=== PATIENT | male | born 2000 | race Caucasian/White ===

== ENCOUNTER 2023-04-12 19:54 | Emergency (ER) | payer OTHER, SELFPAY ==
[2023-04-12 20:04] VITALS: BP 124/85; PULSE 69; RESP 18; TEMP 36.8; O2SAT 98
--- NOTE | 2023-04-12 21:05 | ED.EXTPRO ---
HPI - Extremity Problem General Chief complaint: Extremity Injury, Upper Stated complaint: finger laceration Time Seen by Provider: 04/12/23 20:42 History of Present Illness HPI Narrative: Patient complains of abrasion to left thumb and index finger and finger tip avulsion to left ring finger, this was done on a slicing machine on the job at work at [employer] He denies any other injury, does not recall his last tetanus shot Related Data Previous Rx's Medication Instructions Recorded acetaminophen 500 mg tablet 1,000 mg (2 x 500 mg) PO QID PRN 04/12/23 pain #30 tabs cephalexin 500 mg tablet 500 mg PO QID 5 days #20 tabs 04/12/23 ibuprofen 600 mg tablet 600 mg PO Q6H PRN pain #20 tabs 04/12/23 Allergies Allergy/AdvReac Type Severity Reaction Status Date / Time No Known Allergies Allergy Verified 04/12/23 20:08 [facility] Past Medical History Source: nursing notes reviewed Social History Social History Advance Directives: No Advance Directives Information Provided: No Physical Exam Vital Signs: Vital Signs: Last Vital Signs Temp 98.3 F 04/12/23 20:04 Pulse 69 04/12/23 20:04 Resp 18 04/12/23 20:04 BP 124/85 04/12/23 20:04 Pulse Ox 98 04/12/23 20:04 O2 Del Method Room Air 04/12/23 20:04 BMI result Body Mass Index 30.0 General appearance uncomfortable but no acute distress Head normocephalic atraumatic Neck is supple Respiratory no distress Extremities full range motion x4 Left thumb as a very superficial small abrasion, no skin avulsion to the finger tip Left index finger has a very small abrasion to the fingertip Left ring finger has a dime-sized skin avulsion to the fingertip, there is full range of motion in the finger there is normal sensation distal, it is oozing blood All extremities in the left hand and wrist have full range of motion, no evidence of tendon deficit normal flexion and extension Course Course Course Narrative: Small abrasions on thumb and index finger were cleansed and put a Band-Aid Skin avulsion finger tip left 4th finger is cleansed with saline, skin is allowed to dry, it was continuing to ooze blood so a tourniquet was applied to the middle phalanx and bleeding stopped and Dermabond was applied with good bleeding control, and a Xeroform dressing was applied Patient will follow the for this work-related injury with [facility] and hand doctor as avulsion was dime-sized and he will be evaluated by specialist to see if he needs any grafting or other treatment Discharge Plan Discharge Clinical Impression: Avulsion of skin Patient Disposition: Home, Self-Care Additional Instructions: You had a dime-sized avulsion of skin on left ring finger fingertip I put some skin glue to stop bleeding and a dressing was applied You got a tetanus shot and we are doing 4 days of Keflex to hopefully prevent any infection Follow with [facility] or whatever [facility] doctor your company requires for work related injury This should be seen by a hand specialist to evaluate if you need any skin grafting or other specialist treatment for the open wound Return any time for redness swelling increased pain fever discharge from wound any sign of infection Prescriptions: New cephalexin 500 mg tablet 500 mg PO QID 5 Days Qty: 20 0RF ibuprofen 600 mg tablet 600 mg PO Q6H PRN (Reason: pain) Qty: 20 0RF acetaminophen 500 mg tablet 1,000 mg PO QID PRN (Reason: pain) Qty: 30 0RF Referrals: [facility] [Provider Group] (Work-related left 4th finger skin avulsion from slicer) Jackie Chavez MD [Physician] - (Left 4th fingertip skin avulsion at work from slicer) Stand Alone Forms: Work/School Release Interventions: ED Discharge Assessment Last Done: 04/12/23 20:37
[2023-04-12] MEDS: Diphth,Pertus(ACell),Tet Adult 0.5 ML SYRINGE IM (21:08)
[2023-04-12] MEDS: Lidocaine HCl 1 % MPF 5 ML VIAL SUBCUT ×2 (21:10)
[2023-04-12] MEDS: cephALEXin 500 MG CAPSULE PO (21:10)
[2023-04-12] MEDS: Ibuprofen 600 MG TABLET PO (21:20)
== END 2023-04-12 21:26 | disposition home or self-care (01) ==
PROVIDERS: Emergency Provider Student in an Organized Health Care Education/Training Program
DX: S61.012A Laceration without foreign body of left thumb without damage to nail, initial encounter (principal); S61.211A Laceration without foreign body of left index finger without damage to nail, initial encounter; S60.512A Abrasion of left hand, initial encounter; W26.9XXA Contact with unspecified sharp object(s), initial encounter; Y93.9 Activity, unspecified; Y92.9 Unspecified place or not applicable; Y99.0 Civilian activity done for income or pay; Z23 Encounter for immunization
CPT/HCPCS: 90471; 90715; 99283; 99284

== ENCOUNTER 2023-04-15 07:50 | Outpatient (REF) | payer OTHER, SELFPAY ==
--- NOTE | ~2023-04-15 | XR_ITS ---
EXAMINATION: XR HAND, LEFT CLINICAL INFORMATION: Pain in unspecified hand, 4th digit tip. COMPARISON: None available. TECHNIQUE: PA, lateral, and oblique views of the left hand. FINDINGS: Mild degenerative changes in the 1st carpometacarpal joint with joint space narrowing and hypertrophic change. Soft tissue swelling at the distal tuft of the 4th digit. No displaced fracture of the 4th digit identified. XR/XR hand LT min 3V IMPRESSION: Soft tissue swelling at the distal tuft of the 4th digit. No displaced fracture of the 4th digit identified. Recommend follow-up imaging in 10-14 days if fracture is suspected. Mild degenerative changes 1st carpometacarpal joint.
== END 2023-04-15 07:51 | disposition home or self-care (01) ==
LOC: HO.HOSX 07:50
PROVIDERS: Visit Provider Physician Assistant
DX: S61.205A Unspecified open wound of left ring finger without damage to nail, initial encounter (principal)
CPT/HCPCS: 73130; 99202

== ENCOUNTER 2023-04-15 08:27 | Outpatient (AMB) | payer OTHER, SELFPAY ==
--- NOTE | 2023-04-15 08:29 | A.OFFVIS_ITS ---
Intake Vital Signs 04/15/23 08:29 Height 6 ft 3 in Weight 240 lb BMI 30.0 Handedness Right Intake Visit Reasons: New Pt - LT Ring Finger avulsion, DOI 04/12/23 Intake Note: Jose Raul is a 23 year old right hand dominant who presents today for a evaluation of his left thumb, index finger and RF avulsion, DOI 04/12/23. Patient reports that this was done on a deli slicing machine on the job at work at [employer]. He states that he is having throbbing pain in all his three fingers. When he bangs his fingers on something he tends to get a sharp pain. Allergies No Known Allergies Allergy (Verified 04/15/23 08:42) HPI New Pt - LT Ring Finger avulsion, DOI 04/12/23 HPI Details 23-year-old right hand dominant male who presents in the office today, as a new patient, for an evaluation of a left hand pain. The patient presented to the ED on 04/12/2023 with a complaint of an abrasion to the left thumb and index finger and a finger tip avulsion to the left ring finger status post a slicing machine at his job. The thumb and index were cleans and a band-aid was applied. The left right finger had a dime-sized avulsion, therefore, skin glue was applied to stop the bleeding. He was prescribed Cephalexin 500 mg PO QID for 5 days. While in the office today the patient reports he injured his hand using the deli slicing machine while he was at work. He reports throbbing pain in the three injured digits. He states he gets a sharp pain when he hits his fingers on stuff. Patient works at [employer]. Review of Systems Const All systems reviewed & are unremarkable except as noted in HPI and below Physical Exam Vital Signs: BMI result Body Mass Index 30.0 Const General: cooperative and no acute distress Orientation/consciousness: patient oriented x3 Resp Effort & Inspection: normal respiratory effort and able to speak in complete sentences Cardio Rate: regular rate Peripheral pulses: Peripheral pulses 2+ throughout GI Palpation (GI): Soft to palpation Skin General skin exam: no rashes or lesions noted Lesions: no lesions Rashes: no rashes Neuro General: patient oriented x3 Extrem Other: Left ring finger avulsion of skin at the tip. Healthy tissue is covering the area. No exposed bone. sensation around the avulsion site is intact. No drainage or signs of infection. Able to flex and extend all digits. Capillary refill is brisk. Assessment & Plan Assessment & Plan (1) Avulsion of skin of finger: Comment: Left ring finger Code(s): S61.209A - Unspecified open wound of unspecified finger without damage to nail, initial encounter Qualifiers: Encounter type: initial encounter Qualified Code(s): S61.209A - Unspecified open wound of unspecified finger without damage to nail, initial encounter Plan Mr. Malone is a 23-year-old right hand dominant male who presents in the office today, as a new patient, for an evaluation of a left hand pain. The patient presented to the ED on 04/12/2023 with a complaint of an abrasion to the left thumb and index finger and a finger tip avulsion to the left ring finger status post a slicing machine at his job. The thumb and index were cleans and a band-aid was applied. The left right finger had a dime-sized avulsion, therefore, skin glue was applied to stop the bleeding. He was prescribed Cephalexin 500 mg PO QID for 5 days. While in the office today the patient reports he injured his hand using the [employer] slicing machine while he was at work. He reports throbbing pain in the three injured digits. He states he gets a sharp pain when he hits his fingers on stuff. Patient works at [employer]. The patient will continue to perform daily dressing changes. Due to the nature of his work he needs to be able to have good it application development manager strength, as well as, keeping the avulsed area clean, dry, and intact. 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 I have given him an out of work note with a rele ase to work date for promotions specialist, regular duty on 04/25/2023. I would like to see him for a wound check on 04/22/2023. He confirms he is taking Cephalexin 500 mg QID for 5 days. He was educated on signs of infection, which are as follows but not limited to erythema, edema, drainage, or warmth. If he is to experience any of these symptoms he is to contact the office immediately or present to the ED. He demonstrates understanding. Follow up will be on 04/22/2023 for a wound check, or sooner if needed. X-rays of the left hand which were obtained while in the office today and were reviewed by me, Gloria Mcgraw PA-C, revealed no acute fractures or dislocation. Orders: Orders XR hand LT min 3V Today M79.643 - Pain in unspecified hand Patient Instructions: Scribed by Landy Interiano medical field representative, for Gloria Mcgraw PA-C on 04/15/2023 at 8:45 am, EST. Coding Level of Care Code New Pt Level 4 (78749) Diagnoses Avulsion of skin of finger, initial encounter S61.209A Encounter type: initial encounter
== END 2023-04-15 09:23 | disposition home or self-care (01) ==
PROVIDERS: Visit Provider Physician Assistant
DX: S61.201A Unspecified open wound of left index finger without damage to nail, initial encounter (principal); S61.002A Unspecified open wound of left thumb without damage to nail, initial encounter; S61.227A Laceration with foreign body of left little finger without damage to nail, initial encounter
CPT/HCPCS: 99204

== ENCOUNTER 2023-04-22 09:38 | Outpatient (AMB) | payer OTHER, SELFPAY ==
--- NOTE | 2023-04-22 09:39 | A.OFFVIS_ITS ---
Intake Vital Signs 04/22/23 09:45 Height 6 ft 3 in Weight 240 lb BMI 30.0 Handedness Right Intake Visit Reasons: OV-LT RF avulsion, DOI 04/12/23-wound check Intake Note: Jose Raul is a 23 year old right hand dominant male presents today for a wound check of left RF avulsion, DOI 04/12/23. Patient reports his pain hasn't improved since his last visit. He is still having pain down his ring finger. He states that he notices the tip of the finger is healing. Denies numbness and tingling. Allergies No Known Allergies Allergy (Verified 04/22/23 09:40) HPI OV-LT RF avulsion, DOI 04/12/23-wound check HPI Details 23-year-old right hand dominant male who presents in the office today for a wound check and follow up of left ring avulsion of the skin, which occurred on 04/12/2023 status post an accident with the slicing machine at his job. I last saw the patient in the office on 04/15/2023 where he was instructed to perform daily dressing changes. He was given an out of work note with anticipation of return to work on 04/25/2023. He was also encouraged to complete his course of antibiotics. While in the office today he states his pain has not improved since his last visit. He reports pain in his ring finger. He confirms healing in the finger tip. He denies numbness or tingling. Patient works at [employer]. Review of Systems Const All systems reviewed & are unremarkable except as noted in HPI and below Physical Exam Vital Signs: BMI result Body Mass Index 30.0 Const General: cooperative and no acute distress Orientation/consciousness: patient oriented x3 Resp Effort & Inspection: normal respiratory effort and able to speak in complete sentences Cardio Rate: regular rate Peripheral pulses: Peripheral pulses 2+ throughout GI Palpation (GI): Soft to palpation Skin General skin exam: no rashes or lesions noted Lesions: no lesions Rashes: no rashes Neuro General: patient oriented x3 Extrem Other: Left ring finger avulsion of skin at the tip. Healthy tissue is covering the area. No exposed bone. Sensation around the avulsion site is intact, slightly hypersensitive. No drainage or signs of infection. Able to flex and extend all digits. Capillary refill is brisk. Assessment & Plan Assessment & Plan (1) Avulsion of skin of finger: Comment: Left ring finger Code(s): S61.209A - Unspecified open wound of unspecified finger without damage to nail, initial encounter Qualifiers: Encounter type: initial encounter Qualified Code(s): S61.209A - Unspecified open wound of unspecified finger without damage to nail, initial encounter Plan Mr. Malone is a 23-year-old right hand dominant male who presents in the office today for a wound check and follow up of left ring avulsion of the skin, which occurred on 04/12/2023 status post an accident with the slicing machine at his job. I last saw the patient in the office on 04/15/2023 where he was instructed to perform daily dressing changes. He was given an out of work note with anticipation of return to work on 04/25/2023. He was also encouraged to complete his course of antibiotics. While in the office today he states his pain has not improved since his last visit. He reports pain in his ring finger. He confirms healing in the finger tip. He denies numbness or tingling. Patient works at [employer] and [employer]. The patient is developing a little bit of stiffness in the flexor and extensor tendons of the left ring finger. A referral to occupational therapy has been placed while in the office today. I demonstrated at home exercises for the patient to perform, but he feel she would do better with formal; therapy. He will continue to do daily dressing changes and washing with soap and water. He does have a wound care ointment that he has been putting on the finger that is an antibacterial with lidocaine that helps with pain. He may continue to use this as needed. Follow up will be in 4 weeks, or sooner if needed. Orders: Orders OT Evaluation and Treatment Today S61.209A - Unspecified open wound of unspecified finger without damage to nail, initial encounter Patient Instructions: Scribed by Landy Interiano biomedical engineering director, for Gloria Mcgraw PA-C on 04/22/2023 at 9:48 am, EST. Coding Level of Care Code Est Pt Level 3 (42891) Diagnoses Avulsion of skin of finger, initial encounter S61.A Encounter type: initial encounter
== END 2023-04-22 10:05 | disposition home or self-care (01) ==
PROVIDERS: Visit Provider Physician Assistant
DX: S61.205A Unspecified open wound of left ring finger without damage to nail, initial encounter (principal)
CPT/HCPCS: 99213

== ENCOUNTER → 2023-04-22 09:38 | Outpatient (BNVA) | payer OTHER, SELFPAY | PROVIDERS: Visit Provider Physician Assistant | DX: S61.205D Unspecified open wound of left ring finger without damage to nail, subsequent encounter (principal) | CPT/HCPCS: 99212 ==

== ENCOUNTER 2023-10-27 13:00 | Outpatient (AMB) | payer OTHER, SELFPAY ==
--- NOTE | 2023-10-27 13:33 | AM.OFFWIN_ITS ---
Intake Vital Signs 10/27/23 13:35 Height 6 ft 3 in Weight 240 lb BMI 30.0 BP 114/80 Blood Pressure Location Rt brachial Position Sitting Pulse 96 Pulse Source Pulse Oximeter Pulse Oximetry (%) 98 Oxygen Delivery Method Room Air Intake Visit Reasons: EP left upper thigh cyst(car)[phone] Intake Note: Patient here for left upper thigh cyst that has gotten bigger that has been present about 6 days and last night it popped and continues to hurt. Patient Tobacco Use Status: Current everyday Tobacco user Allergies No Known Allergies Allergy (Verified 10/27/23 13:36) Do you need a note to return to daycare/school/sports/work: No HPI HPI Comments History of Present Illness Details Patient is a 23-year-old male complaining of a painful lump on his left inner buttock for the past 5 days. He states it is worse when he sits on it. He states it has been draining randomly with yellow fluid. Seems to be more hardened now but it is still very painful. He has tried to use a nystatin and triamcinolone cream on it with no relief. [facility] Social History Patient Tobacco Use Status: Current everyday Tobacco user Review of Systems Const All systems reviewed & are unremarkable except as noted in HPI and below Physical Exam Vital Signs: Last Vital Signs Pulse 96 10/27/23 13:35 BP 114/80 10/27/23 13:35 Pulse Ox 98 10/27/23 13:35 Oxygen Delivery Method Room Air 10/27/23 13:35 BMI result Body Mass Index 30.0 Const General: cooperative, healthy appearing, comfortable, no acute distress and well developed Orientation/consciousness: patient oriented x3 Limitations: no limitations Skin Other: Left inner buttock has a 1.5 cm area of induration and erythema and tenderness, no fluctuance noted Neuro General: patient oriented x3 Assessment & Plan Assessment & Plan (1) Abscess, gluteal, left: Code(s): L02.31 - Cutaneous abscess of buttock Plan: Sent doxycycline to pharmacy as abscess can not be drained, it is indurated. Recommended patient come back next week if 5 day course is not enough we can add another 5 days or try a different antibiotic. Plan See above Medications: New doxycycline hyclate 100 mg PO BID 10 tabs 0RF Coding Level of Care Code New Pt Level 3 (76754) Diagnoses Abscess, gluteal, left L02.31
[2023-10-27 13:35] VITALS: BP 114/80; PULSE 96; O2SAT 98
== END 2023-10-27 14:00 | disposition home or self-care (01) ==
PROVIDERS: Visit Provider Physician Assistant
DX: L02.31 Cutaneous abscess of buttock (principal)
CPT/HCPCS: 99203

== ENCOUNTER 2024-07-27 06:51 | Emergency (ER) | payer OTHER, SELFPAY ==
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
--- NOTE | ~2024-07-27 | XR_ITS ---
EXAMINATION: XR WRIST, RIGHT CLINICAL INFORMATION: pain COMPARISON: 04/15/2023. TECHNIQUE: PA, lateral, oblique, and scaphoid views of the right wrist. FINDINGS: No fracture, dislocation, or suspicious bone lesion. Normal bone mineralization. Normal alignment. Carpal bones are intact. Joint spaces are preserved. No significant arthropathy. Soft tissues appear normal. XR/XR wrist RT min 3V IMPRESSION: Normal right wrist. Electronically signed by: Fede Paula MD 07/27/2024 08:30 AM EDT
--- NOTE | ~2024-07-27 | CT_ITS ---
EXAMINATION: CT CERVICAL SPINE WITHOUT CONTRAST CLINICAL INFORMATION: Neck pain, injury. COMPARISON: None available. TECHNIQUE: Spiral CT imaging of the cervical spine performed in axial plane without contrast. Multiplanar reformatted images were constructed from the axial data set. This CT examination was performed using dose optimization techniques as appropriate, variously including the following: *Automated exposure control *Adjustment of mA and/or kV according to patient size (this includes techniques or standardized protocols for targeted exams where dose is matched to indication/reason for exam; i.e. extremities or head) *Use of iterative reconstruction technique FINDINGS: CORONAL ALIGNMENT: -Minimal right convex scoliosis. SAGITTAL ALIGNMENT: -Normal lordosis. No traumatic subluxation. C1-C2 AND CRANIOCERVICAL JUNCTION: -Intact and normally aligned. VERTEBRAL BODIES AND FACETS: -No fracture, compression deformity, traumatic malalignment, or suspicious bone lesion. -Normal facet alignment bilaterally. DISCS: -Preserved at all levels. CENTRAL CANAL: -No evidence of high-grade central canal narrowing or large disc herniation allowing for modality limitations. PREVERTEBRAL AND PARAVERTEBRAL SOFT TISSUES: -No prevertebral or paravertebral soft tissue swelling or edema. No abnormal fluid collection. -Normal thyroid. -Mass or lymphadenopathy within the neck. -Mildly prominent adenoidal soft tissues, consistent with reactive etiology. LUNG APICES: -Clear bilaterally. CT/CT cervical spine wo IV con IMPRESSION: 1. No CT evidence of acute cervical spine fracture or injury. Electronically signed by: Fede Paula MD 07/27/2024 09:53 AM EDT
--- NOTE | ~2024-07-27 | CT_ITS ---
EXAMINATION: CT HEAD WITHOUT CONTRAST CLINICAL INFORMATION: Head injury. COMPARISON: None available. TECHNIQUE: Contiguous axial imaging was performed from the skull base to vertex without intravenous administration of contrast. This CT examination was performed using dose optimization techniques as appropriate, variously including the following: *Automated exposure control *Adjustment of mA and/or kV according to patient size (this includes techniques or standardized protocols for targeted exams where dose is matched to indication/reason for exam; i.e. extremities or head) *Use of iterative reconstruction technique FINDINGS: There is no evidence of intracranial hemorrhage or extra-axial fluid collection. There is no mass effect, or edema. No CT evidence of acute territorial infarct. Ventricles, sulci, and cisterns are normal in size and configuration for patient age. No hydrocephalus. No midline shift. Negative hyperdense MCA sign. Negative insular ribbon sign. No white matter abnormalities. Normal pituitary. Globes and orbital contents image normally. No extracranial soft tissue abnormalities. The paranasal sinuses, mastoid air cells, and tympanic cavities are normally aerated. No suspicious bony abnormalities. There are no acute fractures evident. CT/CT head/brain wo IV con IMPRESSION: No acute intracranial abnormality. No fracture evident. Electronically signed by: Fede Paula MD 07/27/2024 09:48 AM EDT
[2024-07-27 07:07] VITALS: BP 127/66; PULSE 87; RESP 16; TEMP 37.1; O2SAT 96; BMI 29.5
--- OUTSIDE RECORDS SUMMARY | 2024-07-27 07:32 | XMS_ITS | Clinical Summary ---
Author Organization [employer] Address [address] [place] [address] Care Team Providers Care Room Worker Name Role Phone Unavailable Primary Care Provider Unavailabl e Allergies No known active allergies Medications sertraline (Zoloft) 25 MG tablet Take by mouth in the morning. Active aspirin 325 MG tablet Take 325 mg by mouth in the morning. Active LORazepam (Ativan) 0.5 MG tablet Take by mouth. Active Social History Tobacco Use Types Packs/Day Years Used Date Smoking Tobacco: Every Day Cigarettes Smokeless Tobacco: Never Tobacco Cessation:Ready to Q uit: Not Asked; Counseling Given: Not Answered Alcohol Use Standard Drinks/Week Comments Defer 0 (1 standard drink = 0.6 oz pur e alcohol) Sex and Gender Information Value Date Recorded Sex Assigned at Male 08/10/2022 8:22 AM EDT Legal Sex Male 8:19 AM EDT Gender Identity Male 08/10/2022 8:22 AM EDT Sexual Orientation Choose not to disclose 2022 8:22 AM EDT Last Filed Vital Signs Vital Sign Reading Time Taken Comments Blood Pressure 126/82 08/30/2022 8:05 AM EDT Pulse - - Temperature - - Respiratory Rate - - Oxygen Saturation - - Inhaled Oxygen Concentration - - Weight - - Height - - Body Mass Index - - Plan of Treatment Upcoming Encounters Date Type Department Care Team (Late st Contact Info) Description 08/02/2024 1:00 PM EDT Office Visit [facility] [address] [place] [address] [facility] Maintenance Due Date Last Done Comments Dental Prophylaxis 1998 Depression Screening 1998 HIV Screening 1998 SDOH Screening 1998 Disability Screening 1998 Alcohol/Substance Use Screening 2010 Family Planning (PISQ) 2013 HPV Vaccines (3 - Male 3-dose series) 01/27/2014 09/26/2013, 07/27/2013 Hepatitis C Screening 01/27/2016 Pneumococcal Vaccine: Pediatrics (0 to 5 Years) and At-Risk Patients (6 to 49) Years) (1 of 2 - PCV) 2017 Dental Oral Exam 03/03/2023 08/30/2022 Tobacco Screening 08/31/2023 08/30/2022 Dental X-Ray: Bitewings 09/01/2023 08/30/2022, 08/10 COVID-19 Vaccine ( season) 2023 Influenza Vaccine (#1) 2023 12/29/2010 Dental X-Ray: Full Mouth 08/31/2025 08/30/2022 DTaP/Tdap/Td Vaccines (8 - Td or Tdap) 04/12/2033 04/12/2023, 03/29/2012, 07/01/2008, Additional history exists Zoster Vaccines (1 of 2) 01/27/2048 RSV Patients and Patients Aged 60 years or older (1 - 1-dose 75+ series) 2073 HIB Vaccines Completed 06/02/2001, 06/02/2001 Hepatitis B Vaccines Completed 09/29/2001, 06/02/2001, 05/01/2001 Meningococcal Vaccine Completed 10/07/2014, 011 IPV Vaccines Completed 01/20/2016, 0406/2001, 08/12/1999, Additional history exists Hepatitis A Vaccines Aged Out No long er eligible based on patient's age to complete this topic Meningococcal B Vaccine Aged Out No l onger eligible based on patient's age to complete this topic RSV under 20 months Aged Out No longe r eligible based on patient's age to complete this topic Rotavirus Vaccines Aged Out No longer eligible based on patient's age to complete this topic Procedures Procedure Name Priority Date/Time Associated Diagnosis Comments INTRAORAL - COMPLETE SERIES OF RADIOGRAPHIC IMAGES Routine 08/30/2022 8:00 AM EDT COMPREHENSIVE ORAL EVALUATION - NEW OR ESTABLISHED PATIENT Routine 08/30/2022 8:00 AM EDT from Last 3 Months or Most Recently Relevant to Health Maintenance [facility] AD[facility]
[2024-07-27] MEDS: Oxymetazoline HCl 0.05 % Nasal 15 ML SPRAY 2 SPRAY NOSTRIL-B (07:51)
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
[2024-07-27] MEDS: 0.9 % Sodium Chloride 1,000 ML 999 ML IV (08:12)
[2024-07-27 08:18] LABS: MANUAL DIFF FLAG NO
[2024-07-27 08:20] LABS: Basophils Absolute Auto 0.1 X10*3/uL (0.0-0.2); Basophils Percent Auto 0.4 % (0-2); Eosinophils Absolute Auto 0.1 X10*3/uL (0.0-0.4); Eosinophils Percent Auto 0.8 % (0-4); Hematocrit 39.4 % (42.0-52.0); Hemoglobin 13.9 g/dl (14.0-18.0); Imm Gran Abs Auto 0.06 X10*3/uL (0.00-0.03); Imm Gran Pct Auto 0.4 % (0.0-0.4); Lymphocytes Absolute Auto 1.5 X10*3/uL (1.2-4.9); Lymphocytes Percent Auto 9.1 % (20-40); Mean Corpuscular HGB Conc 35.3 g/dl (31.0-36.0); Mean Corpuscular Hemoglobin 30.3 pg (27.0-33.0); Mean Platelet Volume 9.4 fL (9.4-12.4); Monocytes Absolute Auto 1.5 X10*3/uL (0.1-1.2); Monocytes Percent Auto 8.7 % (2-11); Neutrophils Absolute Auto 13.6 x10*3/uL (2.0-8.3); Neutrophils Percent Auto 80.6 % (45-73); Platelet Count 220 X10*3/uL (160-400); Red Blood Count 4.58 X10*6/uL (4.60-5.80); White Blood Count 16.8 X10*3/uL (4.8-10.8)
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
[2024-07-27 08:40] LABS: Anion Gap 8 (12-20); Blood Urea Nitrogen 10 mg/dL (9-16); Calcium 9.5 mg/dL (8.4-10.2); Carbon Dioxide 30 mmol/L (22-29); Chloride 103 mmol/L (96-108); Creatinine Clr Calc Pharmacy 165.7; Estimated Glomerular Filt Rate > 60; Ethanol < 10 mg/dL; Glucose Random 114 mg/dL (60-115); Potassium 3.8 mmol/L (3.3-5.1); Sodium 137 mmol/L (135-145)
[2024-07-27] MEDS: iohexoL 350 MG/ML 100 ML INFUS..BTL IV (09:10)
[2024-07-27 12:27] VITALS: BP 131/80; PULSE 86; RESP 18; TEMP 36.5; O2SAT 98
== END 2024-07-27 12:28 | disposition home or self-care (01) ==
PROVIDERS: Emergency Provider Emergency Medicine Emergency Medical Services
DX: F19.10 Other psychoactive substance abuse, uncomplicated (principal); S09.90XA Unspecified injury of head, initial encounter; V47.0XXA Car driver injured in collision with fixed or stationary object in nontraffic accident, initial encounter; Y93.9 Activity, unspecified; Y92.9 Unspecified place or not applicable; Y99.9 Unspecified external cause status; M54.2 Cervicalgia; M25.531 Pain in right wrist
CPT/HCPCS: 36415; 70450; 71260; 72125; 73110; 74177; 80048; 80307; 85025; 99284; Q9967

== ENCOUNTER → 2024-07-27 07:57 | Outpatient (BNV) | payer OTHER, SELFPAY | PROVIDERS: Emergency Provider Emergency Medicine Emergency Medical Services; Visit Provider Radiology Diagnostic Radiology | DX: R10.9 Unspecified abdominal pain (principal); R07.9 Chest pain, unspecified; M54.2 Cervicalgia; S09.90XA Unspecified injury of head, initial encounter; M25.531 Pain in right wrist; V89.2XXA Person injured in unspecified motor-vehicle accident, traffic, initial encounter | CPT/HCPCS: 70450; 71260; 72125; 73110; 74177 ==

== ENCOUNTER 2024-11-15 10:39 | Emergency (ER) | payer OTHER, SELFPAY ==
[2024-11-15 11:21] VITALS: BP 129/74; PULSE 93; RESP 16; O2SAT 97
--- NOTE | 2024-11-15 11:28 | ED_ITS ---
HPI - General Adult General Chief complaint: Skin/Abscess/Foreign Body Stated complaint: r arm infection Time Seen by Provider: 11/15/24 11:28 Source: patient and family (patient's father) Mode of arrival: ambulatory Limitations: no limitations History of Present Illness ED Provider: Bernadette Mcintyre PA-C HPI narrative: Patient is a 24 year old assigned female at with no significant medical history presenting to the emergency department for concern of a right elbow infection. Patient reports that in the past 4 days he has noticed increased redness, swelling, and a hard red bump on his right elbow. Patient reports the pain has been getting worse and he is now experiencing pain with right elbow ROM. Patient states that he started taking an old prescription of doxycycline 500 mg yesterday with no change. Patient denies any injury or trauma to the area. Patient states that he gets ingrown hairs and often picks at them and believes that is what caused this. Patient denies any fevers, chills, or any other symptoms at this time. Patient denies any history of IVDA. Onset (ago): day(s) (4 days) Related Data Home Medications ?Medication ?Instructions ?Recorded ?Confirmed clonidine HCl 0.2 mg tablet 0.4 mg PO BID 10/27/23 gabapentin 300 mg capsule mg PO 10/27/23 quetiapine 50 mg tablet 50 mg PO BEDTIME 10/27/23 Previous Rx's ?Medication ?Instructions ?Recorded doxycycline hyclate 100 mg tablet 100 mg PO BID #10 ta bs 10/27/23 cephalexin 500 mg capsule 500 mg PO Q6H 7 days #28 cap s 11/15/24 doxycycline hyclate 100 mg tablet 100 mg PO BID 7 days #14 tabs 11/15/24 Allergies Allergy/AdvReac Type Severity Reaction Status Date / Time No Known Allergies Allergy Verified 11/15/24 11:23 Review of Systems 2 Constitutional: Constitutional: Reports as per HPI Eyes: Eyes: Reports as per HPI ENT: Reports as per HPI Cardiovascular: Cardiovascular: Reports as per HPI Respiratory: Respiratory: Reports as per HPI Gastrointestinal: Gastrointestinal: Reports as per HPI Genitourinary: Genitourinary: Reports as per HPI Musculoskeletal: Musculoskeletal: Reports as per HPI Integumentary/Breasts: Skin/Breast: Reports as per HPI Neurologic: Reports as per HPI Psychiatric: Psychiatric: Reports as per HPI Endocrine: Endocrine: Reports as per HPI Hematologic/Lymphatic: Hematologic/Lymphatic: Reports as per HPI Allergic/Immunologic: Allergic/Immunologic: Reports as per HPI [facility] Past Medical History Attestation statement: The following information was validated with the patient. Source: old records reviewed and nursing notes reviewed Social History Social History Patient Tobacco Use Status: Current everyday Tobacco user Substance Use Type: Crack/Cocaine and Heroin Physical Exam ED Vital Signs: Vital Signs - 24 hr 11/15/24 11:21 Pulse Rate 93 Respiratory Rate 16 Blood Pressure 129/74 Pulse Oximetry 97 Oxygen Delivery Method Room Air BMI result Body Mass Index 30.0 Const General: cooperative, no acute distress, alert and awake Nutritional Appearance: well nourished Orientation/consciousness: patient oriented x3 HENMT Head: Yes normal to inspection and Yes atraumatic Ears: hearing grossly normal bilaterally and external ears normal General nose exam: Normal external nose present, no nasal discharge noted and no epistaxis Face and sinus: Yes normal facial exam, No abrasion and No laceration Mouth: Normal oral and palatal mucosa present, no drooling and no muffled voice Eyes General: appearance normal, both eyes and all related structures Periorbital: periorbital findings normal Eyelids: Yes eyelids normal Conjunctivae: conjunctivae normal Pupils: Equal, round and reactive pupils present EOM: EOMs intact bilaterally Neck Neck: Yes normal visual inspection and Yes full ROM Resp Effort & Inspection: normal respiratory effort and able to speak in complete sentences Neuro General: patient oriented x3, moves all extremities and CN's II-XI intact bilaterally Cranial nerves: Yes Equal, round and reactive pupils present Cognition (Neuro): normal cognition Extrem Other: General: Yes full ROM and Yes capillary refill normal Psych Appearance: grossly normal Mental Status: mental status grossly normal Affect: normal affect Attitude: cooperative Thought process: Normal thought process present Thought content: Normal thought content present Insight: Good insight present (Psych) Medications Administered Discontinued Medications Generic Name Dose Route Start Last Admin Trade Name Freq PRN Reason Stop Dose Admin Piperacillin Sod/Tazobactam 50 mls @ 100 mls/hr 11/15/24 11:37 11/15/24 11:59 Sod 3.375 gm/ Sodium Chloride IV 11/15/24 12:06 Not Given ONCE ONE Vancomycin HCl 2,000 mg in 500 mls @ 250 mls/hr 11/15/24 11:45 11/15/24 11:59 Vancomycin/Ns IV 11/15/24 13:44 Not Given ONCE ONE Medical Decision Making Medical Decision Making [facility] Narrative: Patient is a 24 year old assigned male at with no significant medical history presenting to the emergency department for concern of a right elbow infection. Patient's physical exam was as noted in the physical exam portion of this note. Concerning abscess present to the right forearm near the right elbow - unclear how deep / spread. Patient's blood work showed an elevated WBC count of 12.9, ESR 25, and CRP of 3.16. Shortly after the patient's blood was drawn, he requested to leave against medical advice. Patient stated that he wants to go home to shower and then he will return after his father finishes his shift at 4pm . I explained the risks of the patient signing out against medical advice including but not limited to: sepsis, , worsening infection, permanent disability, decreased quality of life, etc. Patient stated that he understood the risks and wanted to sign out against medical advice anyway. Patient prescribed antibiotics and told to return to the emergency department for further evaluation and treatment, immediately. Differential Diagnosis Differential Diagnoses: The differential diagnosis associated with the presentation includes Right elbow cellulitis Right elbow abscess Right forearm abscess Right forearm cellulitis Admission/Observation Consideration of admission/observation: Escalation of care including admission/observation considered Patient would have been admitted to the hospital had his work up had any findings where hospital admission was appropriate, his clinical presentation warranted hospital admission, and he hadn't signed out against medical advice. Lab Data [facility] Lab Attestation statement: I reviewed the patient's lab results. My interpretation of these results are in the MDM Rationale portion of this note. 11/15/24 11:58 11/15/24 11:58 Labs: Lab Results 11/15/24 Range/Units 11:58 WBC 12.9 H (4.8-10.8) X10*3/uL RBC 4.56 L (4.60-5.80) X10*6/uL Hgb 13.7 L (14.0-18.0) g/dl Hct 39.5 L (42.0-52.0) % MCV 86.6 (80.0-98.0) fL MCH 30.0 (27.0-33.0) pg MCHC 34.7 (31.0-36.0) g/dl RDW 13.2 (11.0-16.0) % Plt Count 206 (160-400) X10*3/uL MPV 9.6 (9.4-12.4) fL Immature Gran % (Auto) 0.4 (0.0-0.4) % Neut % (Auto) 72.6 (45-73) % Lymph % (Auto) 18.1 L (20-40) % [place] % (Auto) 8.0 (2-11) % Eos % (Auto) 0.6 (0-4) % Baso % (Auto) 0.3 (0-2) % Lymph # (Auto) 2.3 (1.2-4.9) X10*3/uL [place] # (Auto) 1.0 (0.1-1.2) X10*3/uL Eos # (Auto) 0.1 (0.0-0.4) X10*3/uL Baso # (Auto) 0.0 (0.0-0.2) X10*3/uL Abs Immat Gran (auto) 0.05 H (0.00-0.03) X10*3/uL Absolute Neuts (auto) 9.4 H (2.0-8.3) x10*3/uL Absolute Nucleated RBC 0.000 (0.0-0.012) X10*3/uL Nucleated RBC % (auto) 0.0 (0.0-0.2) /100WBC ESR 25 H (0-15) MM/HR Sodium 141 (135-145) mmol/L Potassium 4.3 (3.3-5.1) mmol/L Chloride 102 (96-108) mmol/L Carbon Dioxide 29 (22-29) mmol/L Anion Gap 14 (12-20) BUN 10 (9-16) mg/dL Creatinine 1.03 (0.5-1.4) mg/dL Estim Creat Clear Calc 144.8 Estimated GFR > 60 Random Glucose 116 H (60-115) mg/dL Lactic Acid 1.7 (0.5-2.0) mmol/L Calcium 9.7 (8.4-10.2) mg/dL Magnesium 2.0 (1.6-2.6) mg/dL Total Bilirubin 0.4 (0.0-1.0) mg/dL AST 28 (5-37) U/L ALT 25 (0-40) U/L Alkaline Phosphatase 76 (39-117) U/L C-Reactive Protein 3.16 H (< or = 0.50) mg/dL Total Protein 8.2 H (6.5-8.0) g/dL Albumin 4.8 (3.5-5.0) g/dL Independent Interpretation I performed an independent interpretation of an: CT Scan (right elbow CT with contrast ordered - patient left against medical advice before it could be done) Prescription Management I considered prescription management with: Antibiotic (patient prescribed oral antibiotics) Discharge Plan Discharge Clinical Impression: Abscess Patient Disposition: Left Against Medical Advice Instructions: Abscess (ED) Additional Instructions: You are signing out against medical advice. I recommended you stay in the emergency department to complete testing and potentially have your right elbow / forearm abscess incised and drained. You have declined this at this time and would like to sign out against medical advice. I explained the risks involved in signing out against medical advice including but not limited to: permanent disability, decreased quality of life, sepsis, and even to you which you verbalized understanding and have requested to leave. I have prescribed you antibiotics - please take these. I recommend you return / proceed to the nearest emergency department as soon as possible for appropriate evaluation and treatment of your right elbow / forearm abscess. Prescriptions: New cephalexin 500 mg capsule 500 mg PO Q6H 7 Days Qty: 28 0RF doxycycline hyclate 100 mg tablet 100 mg PO BID 7 Days Qty: 14 0RF No Action quetiapine 50 mg tablet 50 mg PO BEDTIME gabapentin 300 mg capsule PO clonidine HCl 0.2 mg tablet 0.4 mg PO BID doxycycline hyclate 100 mg tablet 100 mg PO BID Qty: 10 0RF Stand Alone Forms: Against Medical Advice Discharge Date/Time: 11/15/24 12:03 Print Language: Hungarian
--- NOTE | 2024-11-15 12:03 | PC.NURSE ---
Pt requesting to leave after lab draws and return later in day. Provider aware and AMA form completed, pt left ED with steady gait.
[2024-11-15 12:04] LABS: MANUAL DIFF FLAG NO
[2024-11-15 12:06] LABS: Hematocrit 39.5 % (42.0-52.0); Hemoglobin 13.7 g/dl (14.0-18.0); Imm Gran Abs Auto 0.05 X10*3/uL (0.00-0.03); Imm Gran Pct Auto 0.4 % (0.0-0.4); Lymphocytes Absolute Auto 2.3 X10*3/uL (1.2-4.9); Mean Corpuscular HGB Conc 34.7 g/dl (31.0-36.0); Mean Corpuscular Hemoglobin 30.0 pg (27.0-33.0); Mean Corpuscular Volume 86.6 fL (80.0-98.0); NRBC Abs Auto 0.000 X10*3/uL (0.0-0.012); NRBC Pct Auto 0.0 /100WBC (0.0-0.2); Platelet Count 206 X10*3/uL (160-400); Red Blood Count 4.56 X10*6/uL (4.60-5.80); White Blood Count 12.9 X10*3/uL (4.8-10.8)
[2024-11-15 12:22] LABS: Alanine Aminotransferase 25 U/L (0-40); Albumin Level 4.8 g/dL (3.5-5.0); Alkaline Phosphatase 76 U/L (39-117); Anion Gap 14 (12-20); Aspartate Amino Transferase 28 U/L (5-37); Blood Urea Nitrogen 10 mg/dL (9-16); Calcium 9.7 mg/dL (8.4-10.2); Carbon Dioxide 29 mmol/L (22-29); Chloride 102 mmol/L (96-108); Creatinine Clr Calc Pharmacy 144.8; Estimated Glomerular Filt Rate > 60; Magnesium 2.0 mg/dL (1.6-2.6); Potassium 4.3 mmol/L (3.3-5.1); Sodium 141 mmol/L (135-145); Total Protein 8.2 g/dL (6.5-8.0)
== END 2024-11-15 12:03 | disposition left against medical advice (07) ==
PROVIDERS: Physician Assistant Medical; Emergency Provider Emergency Medicine; PCP Internal Medicine
DX: L02.413 Cutaneous abscess of right upper limb (principal); M79.89 Other specified soft tissue disorders; M25.521 Pain in right elbow
CPT/HCPCS: 36415; 80053; 83605; 83735; 85025; 85652; 86140; 87040; 99281; 99283

== ENCOUNTER 2024-11-15 15:14 | Emergency (ER) | payer OTHER, SELFPAY ==
--- OUTSIDE RECORDS SUMMARY | 2024-10-31 15:00 | XMS_ITS | Encounter Summary ---
Author Organization [employer] Address [address] [place] [address] Care Team Providers Care Air Pollution Control Engineer Name Role Phone Unavailable Primary Care Provider Unavailabl e Reason for Visit * Reason Comments Extraction Encounter Details Date Type Department Care Team ([facility] st Contact Info) Description 10/31/2024 3:00 PM EDT Office Visit [facility] [address] [place] [address] Manuel Guerra [address] [place] [address] Social History Tobacco Use Types Packs/Day Years Used Date Smoking Tobacco: Every Day Cigarettes Smokeless Tobacco: Never Alcohol Use Standard Drinks/Week Comments Defer 0 (1 standard drink = 0.6 oz pur e alcohol) Sex and Gender Information Value Date Recorded Sex Assigned at Male 08/10/2022 8:22 AM EDT Legal Sex Male 8:19 AM EDT Gender Identity Male 08/10/2022 8:22 AM EDT Sexual Orientation Choose not to disclose 2022 8:22 AM EDT documented as of this encounter Last Filed Vital Signs Vital Sign Reading Time Taken Comments Blood Pressure 132/68 10/31/2024 3:10 PM EDT Pulse - - Temperature - - Respiratory Rate - - Oxygen Saturation - - Inhaled Oxygen Concentration - - Weight - - Height - - Body Mass Index - - documented in this encounter Progress Notes * Manuel Guerra - 10/31/2024 3:00 PM EDT Dental procedures in this visit D7140 - EXTRACTION, ERUPTED TOOTH OR EXPOSED ROOT (ELEVATION/FORCEPS REMOVAL) 16 (Completed) Service provider: Manuel Guerra Billing provider: Ajith Fischer DMD [id number] - EXTRACTION, ERUPTED TOOTH OR EXPOSED ROOT (ELEVATION/FORCEPS REMOVAL) 17 (Completed) Service provider: Manuel Guerra Billing provider: Ajith Fischer DMD Patient ID: Jose Raul Malone is a 24 y.o. male. Time Out: Date: 10/31/2024 Location: [facility] Tooth: #16 and #17 Procedure: Extraction Verified the above with patient, daycare assistant, and provider. Confirmed via patient's chart, intraorally and by radiographs. Master Dyer: not applicable Simple Extraction of # 16 and [address] done [address] [place] [address] Manuel Guerra Risk, benefits, and alternatives discussed with the patient. CONSENT FORM INITIALED & SIGNED BY THE PATIENT AND COUNTERSIGNED BY Dr. Manuel Guerra Medical history: Reviewed in EHR Vitals: Blood pressure 132/68. Allergies: Reviewed in EHR Medications: Reviewed in EHR - LA: 20% topical benzocaine; Local infiltration with 1 carpule 4% septocaine/articaine 1:100,000 epinephrine - Gingival fibers using periosteal elevator. - Tooth luxated using straight elevator. - Tooth extracted using: Forceps - Curettage done. - Area checked for sharp bony edges / filing of sharp bony edges done. - Hemostasis achieved before dismissal. Patient comfortable to walk. - Gauze pack placed. - post op instructions (written + verbal), extra pack of gauze given. - Rx: Ibuprofen Patient satisfied, left in stable condition NV: Eleanor Provider: Dr. Manuel Guerra Gang Worker: Yudelka Collins Supervising Dentist: Dr. Fischer * Ajith Fischer DMD - 10/31/2024 3:00 PM EDT I saw and evaluated the patient, participating in the flores portions of the service. I reviewed the resident???s note. I agree with the resident???s findings and plan. Ajith Fischer DMD documented in this encounter Plan of Treatment Not on file documented as of this encounter Procedures Procedure Name Priority Date/Time Associated Diagnosis Comments 17 EXTRACTION, ERUPTED TOOTH OR EXPOSED ROOT (ELEVATION/FORCEPS REMOVAL) Routine 10/31/2024 3:00 PM EDT 16 EXTRACTION, ERUPTED TOOTH OR EXPOSED ROOT (ELEVATION/FORCEPS REMOVAL) Routine 10/31/2024 3:00 PM EDT documented in this encounter Visit Diagnoses Not on filedocumented in this encounter
--- NOTE | ~2024-11-15 | CT_ITS ---
CLINICAL HISTORY: abscess? osteo? CT of the right elbow with contrast Comparison: None provided Findings: Extensive subcutaneous edema throughout the dorsal aspect of the right upper extremity beginning at the distal upper arm and extending inferiorly throughout the visualized forearm. No drainable fluid collection to suggest an abscess. No subcutaneous air tracking to the bone to suggest osteomyelitis. No acute fracture or dislocation. No elbow joint effusion. Vascular structures are grossly unremarkable. Impression: No CT findings to suggest osteomyelitis or abscess. There are findings of extensive cellulitis from the distal right upper extremity to the visualized forearm on the dorsal aspect. If there is persistent concern for osteomyelitis, consider three-phase bone scan or MRI of the elbow with and without intravenous contrast This document has been electronically signed by: Mohamud Olmstead MD on 11/15/2024 23:01:54
[2024-11-15 15:48] VITALS: BP 144/71; PULSE 122; RESP 18; TEMP 37.3; O2SAT 94; BMI 32.6
--- NOTE | 2024-11-15 15:52 | ED_ITS ---
HPI - Skin/Abscess/Foreign Bdy General Chief complaint: Skin/Abscess/Foreign Body Stated complaint: right arm infection/seen here today Time Seen by Provider: 11/15/24 20:15 Source: patient Limitations: no limitations History of Present Illness ED Provider: Sindhu Torres PA-C HPI narrative: 24-year-old male presents with right upper extremity infection x4 days. Patient noted a firm swelling over the right elbow, over the past 4 days, it has become more tender to palpation with overlying redness, swelling, and pus draining from the site. Patient states he is prone to ingrown hairs. Patient denies history of IV drug abuse, or any other immunocompromised state. Denies inability to flex or extend the arm, no fevers. Related Data Home Medications ?Medication ?Instructions ?Recorded ?Confirmed clonidine HCl 0.2 mg tablet 0.4 mg PO BID 10/27/23 gabapentin 300 mg capsule mg PO 10/27/23 quetiapine 50 mg tablet 50 mg PO BEDTIME 10/27/23 Previous Rx's ?Medication ?Instructions ?Recorded doxycycline hyclate 100 mg tablet 100 mg PO BID #10 ta bs 10/27/23 cephalexin 500 mg capsule 500 mg PO Q6H 7 days #28 cap s 11/15/24 doxycycline hyclate 100 mg tablet 100 mg PO BID 7 days #14 tabs 11/15/24 Allergies Allergy/AdvReac Type Severity Reaction Status Date / Time No Known Allergies Allergy Verified 11/15/24 15:52 Review of Systems 2 Review of Systems: Yes all other systems are reviewed and are negative Constitutional: Constitutional: Denies fatigue and Denies fever(s) Cardiovascular: Cardiovascular: Denies chest pain and Denies dyspnea Respiratory: Respiratory: Denies dyspnea Gastrointestinal: Gastrointestinal: Denies abdominal pain Musculoskeletal: Musculoskeletal: Reports arthralgias and Reports joint swelling Integumentary/Breasts: Skin/Breast: Reports erythema, Reports skin swelling, Reports sores and Reports wounds Endocrine: Endocrine: Denies fatigue PMFSH Past Medical History Attestation statement: The following information was validated with the patient. Social History Social History Patient Tobacco Use Status: Current everyday Tobacco user Smoked in Last 30 Days: No Use of substances other than those prescribed or required for medical reasons: No Substance Use Type: Crack/Cocaine and Heroin Advance Directives: No Advance Directives Information Provided: No Physical Exam 2 Vital Signs: Vital Signs: Last Vital Signs Temp 99.2 F 11/15/24 23:32 Pulse 122 H 11/15/24 23:32 Resp 18 11/15/24 23:32 BP 144/71 H 11/15/24 23:32 Pulse Ox 94 11/15/24 23:32 O2 Del Method Room Air 11/15/24 23:32 BMI result Body Mass Index 32.6 Const: Other: Alert appears older than stated age Orientation/consciousness: patient oriented x3 Resp: Effort & Inspection: normal respiratory effort Cardio: Other: Normal peripheral perfusion Skin: Other: Warm dry no rash Neuro: General: patient oriented x3, gait normal, no focal motor deficits and CN's II-XI intact bilaterally Extrem: Other: Able to flex and extend the right elbow fully, overlying erythema along the lateral aspect of the elbow, there was an open wound draining purulence, it is warm an indurated Psych: Other: Cooperative Course Course Course Narrative: This is an RME: Additional HPI, ROS, PE not included below will be deferred to primary provider. RME assessment and note performed by: Nan Temple PA-C This is a 24-year-old male who presents emergency department for evaluation of right arm redness, and swelling. Patient was seen here early however left AMA. He states that the area had ruptured. Patient tachycardic in the 120s, temp 99.2?. Labs were done previously however given change in vital signs, repeated. Inquired about drug use, he states that he previously used several years ago, does not report any drug use today. Plan: Labs, further ER evaluation needed. Reevaluation(s) Reevaluation #1: The patient pulled his IV out wants to be discharged, he knows the CT scan of the upper extremity is not completed. I have had discussion with him about admission for IV antibiotic therapy following the CT scan, he seemed to be in agreement with the plan. He is leaving against medical advice again for the 2nd time today. He received prescriptions for IV antibiotics from the prior provider. Time: 23:25 Medications Administered Discontinued Medications Generic Name Dose Route Start Last Admin Trade Name Freq PRN Reason Stop Dose Admin Piperacillin Sod/Tazobactam 50 mls @ 100 mls/hr 11/15/24 20:24 11/15/24 21:12 Sod 3.375 gm/ Sodium Chloride IV 11/15/24 20:53 Infused ONCE ONE Infusion Vancomycin HCl 1,500 mg/ 500 mls @ 333.333 mls/hr 11/15/24 20:24 11/15/24 23:33 Sodium Chloride IV 11/15/24 21:53 Infused POSTOP ONE Infusion Iohexol 85 ml 11/15/24 22:05 11/15/24 22:06 Iohexol 350 Mg/Ml 100 Ml Infus..Btl IV 11/15/24 22:06 85 ml ONCE ONE Administration Morphine Sulfate 4 mg 11/15/24 20:26 11/15/24 20:38 Morphine Sulfate 4 Mg/Ml Cartridge IVPUSH 11/15/24 20:27 4 mg ONCE ONE Administration Protocol Medical Decision Making Medical Decision Making MDM Narrative: 24-year-old male presents with right upper extremity infection x4 days. Patient noted a firm swelling over the right elbow, over the past 4 days, it has become more tender to palpation with overlying redness, swelling, and pus draining from the site. Patient states he is prone to ingrown hairs. Patient denies history of IV drug abuse, or any other immunocompromised state. Denies inability to flex or extend the arm, no fevers. No known chronic issues History: Per patient I have considered the following differential diagnoses: Cellulitis, purulent cellulitis, abscess, osteomyelitis , septic joint Plan: The patient clearly has purulent cellulitis with an abscess, we will obtain imaging to rule out osteomyelitis. Thought about septic joint, however the patient has retained range of motion. The patient was seen earlier today and he left against medical advice. At that time blood cultures and lactic were collected. We do not need to repeat. Starting empiric vanco and Zosyn. Obtaining a CT scan giving morphine for his pain. I have independently reviewed the following tests: Labs: Leukocytosis of 15.9, left shift of 80.5, not anemic, no electrolyte abnormality, lactic 1.7, repeat lactic 1.6, C-reactive protein 3.16, ESR 25 CT right upper extremity:Findings: Extensive subcutaneous edema throughout the dorsal aspect of the right upper extremity beginning at the distal upper arm and extending inferiorly throughout the visualized forearm. No drainable fluid collection to suggest an abscess. No subcutaneous air tracking to the bone to suggest osteomyelitis. No acute fracture or dislocation. No elbow joint effusion. Vascular structures are grossly unremarkable. Impression: No CT findings to suggest osteomyelitis or abscess. There are findings of extensive cellulitis from the distal right upper extremity to the visualized forearm on the dorsal aspect. If there is persistent concern for osteomyelitis, consider three-phase bone scan or MRI of the elbow with and without intravenous contrast Differential Diagnosis Differential Diagnoses: The differential diagnosis associated with the presentation includes See medical decision Admission/Observation Consideration of admission/observation: Escalation of care including admission/observation considered Wanting to admit the patient, I will see if he is still in agreement Consult Healthcare Provider Management of the patient was discussed with: Hospitalist Lab Data MDM Lab Attestation statement: I reviewed the patient's lab results. 11/15/24 16:28 11/15/24 16:28 Labs: Lab Results 11/15/24 Range/Units 16:28 WBC 15.9 H (4.8-10.8) X10*3/uL RBC 4.38 L (4.60-5.80) X10*6/uL Hgb 13.1 L (14.0-18.0) g/dl Hct 37.3 L (42.0-52.0) % MCV 85.2 (80.0-98.0) fL MCH 29.9 (27.0-33.0) pg MCHC 35.1 (31.0-36.0) g/dl RDW 13.2 (11.0-16.0) % Plt Count 208 (160-400) X10*3/uL MPV 9.5 (9.4-12.4) fL Immature Gran % (Auto) 0.4 (0.0-0.4) % Neut % (Auto) 80.5 H (45-73) % Lymph % (Auto) 11.4 L (20-40) % [place] % (Auto) 7.3 (2-11) % Eos % (Auto) 0.1 (0-4) % Baso % (Auto) 0.3 (0-2) % Lymph # (Auto) 1.8 (1.2-4.9) X10*3/uL [place] # (Auto) 1.2 (0.1-1.2) X10*3/uL Eos # (Auto) 0.0 (0.0-0.4) X10*3/uL Baso # (Auto) 0.0 (0.0-0.2) X10*3/uL Abs Immat Gran (auto) 0.06 H (0.00-0.03) X10*3/uL Absolute Neuts (auto) 12.8 H (2.0-8.3) x10*3/uL Absolute Nucleated RBC 0.000 (0.0-0.012) X10*3/uL Nucleated RBC % (auto) 0.0 (0.0-0.2) /100WBC Sodium 141 (135-145) mmol/L Potassium 4.0 (3.3-5.1) mmol/L Chloride 105 (96-108) mmol/L Carbon Dioxide 28 (22-29) mmol/L Anion Gap 12 (12-20) BUN 12 (9-16) mg/dL Creatinine 1.06 (0.5-1.4) mg/dL Estim Creat Clear Calc 138.5 Estimated GFR > 60 Random Glucose 140 H (60-115) mg/dL Lactic Acid 1.6 (0.5-2.0) mmol/L Calcium 9.6 (8.4-10.2) mg/dL Magnesium 1.8 (1.6-2.6) mg/dL Total Bilirubin 0.4 (0.0-1.0) mg/dL Direct Bilirubin 0.2 (0.0-0.5) mg/dL AST 28 (5-37) U/L ALT 23 (0-40) U/L Alkaline Phosphatase 77 (39-117) U/L Total Creatine Kinase 151 (38-174) U/L Total Protein 7.9 (6.5-8.0) g/dL Albumin 4.9 (3.5-5.0) g/dL Ethyl Alcohol < 10 mg/dL Radiology Impression Discussion of test interpretation with radiology: I have reviewed the radiologist's reading. Critical Care Time Critical Care Time Critical Care Time: Yes Total Critical Care Time: 35 Attestation: I Sindhu Torres PA-C have personally performed 35 minutes of critical care time not including lines and procedures; need for admission need for IV antibiotics, likely wound consult/other potential surgical intervention Discharge Plan Discharge Clinical Impression: Abscess of right forearm Patient Disposition: Left Against Medical Advice Prescriptions: No Action cephalexin 500 mg capsule 500 mg PO Q6H 7 Days Qty: 28 0RF doxycycline hyclate 100 mg tablet 100 mg PO BID 7 Days Qty: 14 0RF quetiapine 50 mg tablet 50 mg PO BEDTIME gabapentin 300 mg capsule PO clonidine HCl 0.2 mg tablet 0.4 mg PO BID doxycycline hyclate 100 mg tablet 100 mg PO BID Qty: 10 0RF Stand Alone Forms: Against Medical Advice Interventions: ED Discharge Assessment Last Done: 11/15/24 23:32 Discharge Date/Time: 11/15/24 23:33 Print Language: [place] Citizen
--- NOTE | 2024-11-15 15:53 | ECG_ITS ---
Test Reason : TACHYCARDIA Blood Pressure : */* mmHG Vent. Rate : 109 BPM Atrial Rate : 109 BPM P-R Int : 176 ms QRS Dur : 82 ms QT Int : 314 ms P-R-T Axes : 41 20 -12 degrees QTcB Int : 422 ms Sinus tachycardia Nonspecific ST and T wave abnormality Abnormal ECG No previous ECGs available Referred By: Nan Temple Electronically Signed By: KEITH MCKEON
[2024-11-15 16:34] LABS: MANUAL DIFF FLAG NO
[2024-11-15 16:37] LABS: Hematocrit 37.3 % (42.0-52.0); Hemoglobin 13.1 g/dl (14.0-18.0); Imm Gran Abs Auto 0.06 X10*3/uL (0.00-0.03); Imm Gran Pct Auto 0.4 % (0.0-0.4); Lymphocytes Absolute Auto 1.8 X10*3/uL (1.2-4.9); Mean Corpuscular HGB Conc 35.1 g/dl (31.0-36.0); Mean Corpuscular Hemoglobin 29.9 pg (27.0-33.0); Mean Corpuscular Volume 85.2 fL (80.0-98.0); NRBC Abs Auto 0.000 X10*3/uL (0.0-0.012); NRBC Pct Auto 0.0 /100WBC (0.0-0.2); Platelet Count 208 X10*3/uL (160-400); Red Blood Count 4.38 X10*6/uL (4.60-5.80); White Blood Count 15.9 X10*3/uL (4.8-10.8)
[2024-11-15 16:51] LABS: Alanine Aminotransferase 23 U/L (0-40); Albumin Level 4.9 g/dL (3.5-5.0); Alkaline Phosphatase 77 U/L (39-117); Anion Gap 12 (12-20); Aspartate Amino Transferase 28 U/L (5-37); Blood Urea Nitrogen 12 mg/dL (9-16); Calcium 9.6 mg/dL (8.4-10.2); Carbon Dioxide 28 mmol/L (22-29); Chloride 105 mmol/L (96-108); Creatinine Clr Calc Pharmacy 138.5; Estimated Glomerular Filt Rate > 60; Magnesium 1.8 mg/dL (1.6-2.6); Potassium 4.0 mmol/L (3.3-5.1); Sodium 141 mmol/L (135-145); Total Protein 7.9 g/dL (6.5-8.0)
--- OUTSIDE RECORDS SUMMARY | 2024-11-15 19:42 | XMS_ITS | Clinical Summary ---
Author Organization [id number] Address [address] [place] [address] Care Team Providers Care [employer] Name Role Phone Unavailable Primary Care Provider Unavailabl e Allergies No known active allergies Medications sertraline (Zoloft) 25 MG tablet Take by mouth in the morning. Active aspirin 325 MG tablet Take 325 mg by mouth in the morning. Active LORazepam (Ativan) 0.5 MG tablet Take by mouth. Active gabapentin (Neurontin) 300 MG capsule TAKE ONE CAPSULE BY MOUTH TWICE A DAY AND TWO CAPSULES AT NOON 10/11/2024 Active venlafaxine XR (Effexor XR) 150 MG 24 hr capsule take 1 capsule by mouth every day in the morning 09/06/2024 Active ibuprofen 400 MG tablet Take 1 tablet (400 mg) by mouth every 6 (six) hours if needed for moderate pain for up to 20 doses. 20 tablet 10/31/2024 Active Encounters Date Type Department Care Team Description 10/31/2024 3:00 PM EDT Office Visit [facility] [address] [place] [address] Manuel Guerra 10/30/2024 1:00 PM EDT Office Visit [facility] [address] [place] [address] Manuel Guerra from Last 3 Months Social History Tobacco Use Types Packs/Day Years [...] Mass Index - - Plan of Treatment Health Maintenance Due Date Last Done Comments Dental Prophylaxis 1998 Depression Screening 1998 HIV Screening 1998 Lipid Panel 1998 SDOH Screening 1998 Disability Screening 1998 Alcohol/Substance Use Screening 2010 Family Planning (PISQ) 2013 HPV Vaccines (3 - Male 3-dose series) 01/27/2014 09/26/2013, 07/27/2013 Hepatitis C Screening 01/27/2016 Pneumococcal Vaccine: Pediatrics (0 to 5 Years) and At-Risk Patients (6 to 49) Years (1 of 2 - PCV) 2017 Dental Oral Exam 03/03/2023 08/30/2022 Dental X-Ray: Bitewings 09/01/2023 08/30/2022, 08/10 COVID-19 Vaccine ( - season) 2024 Influenza Vaccine (#1) 2024 12/29/2010, 2010 Dental X-Ray: Full Mouth 08/31/2025 08/30/2022 Tobacco Screening 10/31/2025 10/31/2024 DTaP/Tdap/Td Vaccines (8 - Td or Tdap) 04/12/2033 04/12/2023, 03/29/2012, 07/01/2008, Additional history exists Zoster Vaccines (1 of 2) 01/27/2048 RSV Patients and Patients Aged 60 years or older (1 - 1-dose 75+ series) 2073 HIB Vaccines Completed 06/02/2001, 06/02/2001 Hepatitis B Vaccines Completed 09/29/2001, 06/02/2001, 05/01/2001 Meningococcal Vaccine Completed 10/07/2014, 011 IPV Vaccines Completed 01/20/2016, 06/2001, 08/12/1999, Additional history exists Hepatitis A Vaccines [...] (ELEVATION/FORCEPS REMOVAL) Routine 10/31/2024 3:00 PM EDT CASE PRESENTATION, DETAILED AND EXTENSIVE TREATMENT PLANNING Routine 10/30/2024 1:00 PM EDT 16,17,32 LIMITED ORAL EVALUATION - PROBLEM FOCUSED Routine 10/30/2024 1:00 PM EDT INTRAORAL - COMPLETE SERIES OF RADIOGRAPHIC IMAGES Routine 08/30/2022 8:00 AM EDT COMPREHENSIVE ORAL EVALUATION - NEW OR ESTABLISHED PATIENT Routine 08/30/2022 8:00 AM EDT from Last 3 Months or Most Recently Relevant to Health Maintenance Insurance [facility] MEDICAID STAND ADULT
--- OUTSIDE RECORDS SUMMARY | 2024-11-15 19:42 | XMS_ITS ---
Author Name [facility] Organization Unknown Care Team Organization Name Specialty Phone Email Start Date End Da te [facility] SHERI GONZALEZ Primary Care [email or web address] 02/09/2023 10/17/2023 [facility] NULL Primary Care 01/05/2022 10/17/2023
[2024-11-15] MEDS: iohexoL 350 MG/ML 100 ML INFUS..BTL 85 ML IV (22:06)
--- NOTE | 2024-11-15 23:28 | PC.NURSE ---
Took pt over at 23:00 pt refusing to stay, pt was explain to several times, of his options and needing to await for results, pt refusing to stay, took his own Iv out, pt continued to be disrespectful to me, notified provider SEBASTIAN Cedillo who also explained to pt and father several times of his options and inform pt that CT results are pending to make a medical decision. Pt left against medical advise with his father, while complaining he had to wait for results upon discharge.
[2024-11-15 23:32] VITALS: BP 144/71; PULSE 122; RESP 18; TEMP 37.3; O2SAT 94
== END 2024-11-15 23:33 | disposition left against medical advice (07) ==
PROVIDERS: Physician Assistant Medical; Emergency Provider Student in an Organized Health Care Education/Training Program; PCP Internal Medicine
DX: L02.413 Cutaneous abscess of right upper limb (principal); R00.0 Tachycardia, unspecified; Z51.81 Encounter for therapeutic drug level monitoring; Z79.899 Other long term (current) drug therapy
CPT/HCPCS: 36415; 73201; 80048; 80076; 80307; 82550; 83605; 83735; 85025; 87040; 93005; 96365; 96366; 96367; 96375; 99285; J2270; J2543; J3374; Q9967

== ENCOUNTER → 2024-11-15 15:53 | Outpatient (BNV) | payer OTHER, SELFPAY | PROVIDERS: Emergency Provider Student in an Organized Health Care Education/Training Program; PCP Internal Medicine; Visit Provider Internal Medicine | DX: R00.0 Tachycardia, unspecified (principal) | CPT/HCPCS: 93010 ==

== ENCOUNTER → 2024-11-15 20:24 | Outpatient (BNV) | payer OTHER, SELFPAY | PROVIDERS: Emergency Provider Student in an Organized Health Care Education/Training Program; PCP Internal Medicine; Visit Provider Student in an Organized Health Care Education/Training Program | DX: R22.31 Localized swelling, mass and lump, right upper limb (principal) | CPT/HCPCS: 73201 ==